=== PATIENT | male | born 1960 | race Caucasian/White ===

== ENCOUNTER 2021-06-26 20:58 | Observation (INO) ==
[2021-06-26 21:36] LABS: Basophils # 0.1 K/mcL (0.0-0.2); Basophils % 0.5 %; Eosinophils # 0.3 K/mcL (0.0-0.6); Eosinophils % 2.3 %; Hematocrit 44.1 % (37.5-50.1); Hemoglobin 14.6 g/dL (12.9-16.9); Immature Granulocytes % 0.3 % (0-4); Lymphocytes # 1.7 K/mcL (0.6-4.6); Mean Corpuscular HGB Conc 33.1 g/dL (31.6-35.5); Mean Corpuscular Hemoglobin 32.9 pg (28.0-33.3); Mean Corpuscular Volume 99.3 fL (83.0-100.0); Mean Platelet Volume 10.3 fL (9.4-12.4); Neutrophils # 9.3 K/mcL (1.6-8.9); Platelet Count 277 K/mcL (140-400); Red Blood Count 4.44 M/mcL (4.19-5.50); Red Cell Distribution Width 13.1 % (11.5-14.5); Segmented Neutrophils % 74.9 %; White Blood Count 12.4 K/mcL (4.3-11.1)
[2021-06-26 21:51] LABS: BUN/Creatinine Ratio 13 (6-26); Blood Urea Nitrogen 13 mg/dL (6-20); Calcium 9.3 mg/dL (8.6-10.3); Carbon Dioxide 28 mEq/L (23-29); Chloride 104 mEq/L (98-107); Glucose 133 mg/dL (70-105); Osmolality,Calculated 292 (280-300); Sodium 140 mEq/L (136-145); Troponin I < 0.03 ng/mL (< 0.04); eGFR For African Americans > 60 (> 60); eGFR For Non-African Americans > 60 (> 60)
[2021-06-27 05:01] LABS: Alanine Aminotransferase 18 Units/L (7-52); Albumin 4.4 g/dL (3.5-5.7); Albumin/Globulin Ratio 1.4 (1.1-2.2); Alkaline Phosphatase 87 Units/L (34-104); Aspartate Amino Transferase 17 Units/L (13-39); Bilirubin,Indirect 0.6 mg/dL (0.0-1.0); Bilirubin,Total 0.6 mg/dL (0.3-1.0); Globulin 3.2 g/dL (2.4-3.5); Lipase 27 Units/L (11-82); Total Protein 7.6 g/dL (6.4-8.9)
[2021-06-27] MEDS ORDERED: Aspirin 325 MG TABLET PO ONE (05:27)
[2021-06-27] MEDS ORDERED: Naloxone 0.4 MG/ML INJ IVP PRN (05:35)
[2021-06-27] MEDS ORDERED: Ondansetron 4 MG/2 ML VIAL IVP PRN (05:35)
[2021-06-27] MEDS: Nitroglycerin 0.4 MG TAB.SUBL SL PRN ×3 (05:36→12:31)
[2021-06-27] MEDS ORDERED: Nitroglycerin 0.4 MG TAB.SUBL SL PRN (05:36)
[2021-06-27] MEDS ORDERED: Nicotine 14 MG PATCH.TD24 TD PRN (06:20)
[2021-06-27 06:51] LABS: Troponin I 0.03 ng/mL (< 0.04)
[2021-06-27 06:57] LABS: Chol/HDL Ratio 4.9 (0-4.9)
[2021-06-27] MEDS ORDERED: Regadenoson 0.4 MG/5 ML SYRINGE IVP ONE (07:13)
[2021-06-27 08:04] LABS: Influenza A PCR Negative (Negative); Influenza B PCR Negative (Negative); Resp. Syncytial Virus PCR Negative (Negative); SARS-CoV-2 by PCR (In House) Negative (Negative)
[2021-06-27 10:52] LABS: Estimated Average Glucose 120 mg/dl; Hemoglobin A1C 5.8 %
[2021-06-27 12:11] VITALS: TEMP 98.4
[2021-06-27 14:51] VITALS: BP 134/79; PULSE 60; O2SAT 96
== END 2021-06-27 16:16 | disposition home or self-care (01) ==
LOC: 3BNU 20:58 → EMEROOARM 20:58 → 3BNU 06-27 09:55
PROVIDERS: ADMIT Internal Medicine; ATTEND Internal Medicine